=== PATIENT | male | born 1950 | race Caucasian/White ===

== ENCOUNTER 2016-06-06 16:17 | Emergency (ER) | payer SELFPAY ==
[2016-06-06 16:38] VITALS: BP 138/73
--- NOTE | 2016-06-06 16:55 | UC ---
Throat Pain/Nasal Sunday HPI - HPI Summary HPI Summary: compalint of nasal congestion and cough that started approx 9 days ago cough is non-productive sinus pressure in his forehead and face mild sore throat from secretions intermittent headaches thinks he might have had a fever several times denies shortness of breath and wheezing taking OTC medications with some relief - History of Current Complaint Chief Complaint: UCRespiratory Stated Complaint: COLD,COUGH,SORE THROAT Time Seen by Provider: 06/06/16 16:45 Hx Obtained From: Patient - Allergies/Home Medications Allergies/Adverse Reactions: Allergies Allergy/AdvReac Type Severity Reaction Status Date / Time No Known Allergies Allergy Verified 01/07/14 12:47 PMH/Surg Hx/FS Hx/Imm Hx Previously Healthy: Yes Endocrine History Of: Denies: Diabetes, Thyroid Disease Cardiovascular History Of: Denies: Cardiac Disorders, Hypertension Respiratory History Of: Denies: COPD, Asthma GI/ History Of: Denies: Ulcer - Surgical History Surgical History: None - Family History Known Family History: Negative: Cardiac Disease, Hypertension, Diabetes - Social History Occupation: Employed Full-time Lives: With Family Alcohol Use: Rare Substance Use Type: None Smoking Status (MU): Never Smoked Tobacco - Immunization History Most Recent Tetanus Shot: does not recall Review of Systems Constitutional: Fever, Fatigue Skin: Negative Eyes: Negative ENT: Sore Throat, Nasal Discharge Respiratory: Cough Cardiovascular: Negative Gastrointestinal: Negative Genitourinary: Negative Motor: Negative Neurovascular: Negative Musculoskeletal: Negative Neurological: Headache Psychological: Negative All Other Systems Reviewed And Are Negative: Yes Physical Exam Triage Information Reviewed: Yes Appearance: No Pain Distress, Well-Nourished Vital Signs: Initial Vital Signs Temp 97.9 F 06/06/16 16:33 Pulse 52 06/06/16 16:33 Resp 16 06/06/16 16:33 BP 138/73 06/06/16 16:33 Pulse Ox 99 06/06/16 16:33 Vital Signs Reviewed: Yes Eyes: Positive: Conjunctiva Clear ENT: Positive: Pharyngeal erythema, Nasal congestion, Nasal drainage, TMs normal , Other: - frontal and maxillary sinus tenderness Neck: Positive: No Lymphadenopathy Respiratory: Positive: Lungs clear, Normal breath sounds, No respiratory distress Cardiovascular: Positive: No Murmur, Pulses Normal, Bradycardia Abdomen Description: Positive: Nontender, Soft Bowel Sounds: Positive: Present Musculoskeletal Exam: Normal Neurological Exam: Normal Psychological Exam: Normal Skin Exam: Normal Throat Pain/Nasal Course/Dx - Differential Dx/Diagnosis Differential Diagnosis/HQI/PQRI: Sinusitis, URI Provider Diagnoses: sinusitis Discharge - Discharge Plan Condition: Stable Disposition: HOME Prescriptions: Amoxicillin/Clavulanate TAB* [Augmentin TAB 875*] 875 mg PO BID #20 tab Patient Education Materials: Sinusitis (ED) Referrals: Frank Borrego MD [Primary Care Provider] - Additional Instructions: SINUSITIS What is Sinusitis? Sinusitis is inflammation or infection of the lining of the sinuses behind the bones in your cheeks or forehead. Sinusitis may occur following a common cold, flu, or other infection; allergies; a tooth infection that spreads to the sinuses; swimming in contaminated water; pressure changes in airplanes at high altitudes; violent sneezing or nose blowing or smoking or breathing other peoples smoke. Symptoms Might Include: Nasal Congestion Sneezing Watery eyes, eye irritation, or eye itching Headaches Pressure in the cheeks Wheezing Trouble smelling Sore throat and coughing may occur Treatment Recommendations: Take medicines as prescribed until completely gone. Drink plenty of fluids. Use saline nose spray to thin the mucous and help the sinuses drain. Use a vaporizer or humidifier. Apply warm compresses to the face or forehead several times a day for 10 to 20 minutes. Call Your Doctor or Return Here IF: Your pain increases during treatment. You develop a high temperature. You develop unusual swelling around the eyes. You have difficulty with your vision. You develop a severe headache, earache, or toothache. You develop increased fever or fever that does not respond to medication such as Tylenol?. You have difficulty breathing or catching your breath. You begin to have any other new symptoms that worry you.
== END 2016-06-06 17:17 | disposition home or self-care (01) ==
LOC: UCEAST 16:17
DX: J32.9 Chronic sinusitis, unspecified (principal)
CPT/HCPCS: 99212; G0463

== ENCOUNTER 2016-06-29 15:34 | Emergency (ER) | payer BC, MEDICARE ==
[2016-06-29 16:03] VITALS: BP 137/72
== END 2016-06-29 16:51 | disposition left against medical advice (07) ==
LOC: UCEAST 15:34
DX: T14.8 Other injury of unspecified body region (principal); W57.XXXA Bitten or stung by nonvenomous insect and other nonvenomous arthropods, initial encounter; Y93.9 Activity, unspecified; Y92.9 Unspecified place or not applicable; Z53.21 Procedure and treatment not carried out due to patient leaving prior to being seen by health care provider

== ENCOUNTER 2016-06-30 07:31 | Emergency (ER) | payer BC, MEDICARE ==
[2016-06-30 07:39] VITALS: BP 129/63
[2016-06-30] MEDS ORDERED: Doxycycline (NF) 100 MG TAB PO ONE (08:52)
--- NOTE | 2016-06-30 09:02 | UC ---
Collins Garcia Billy, scribed for EdaDevon marshall MD on 06/30/16 at 0840 . General HPI - HPI Summary HPI Summary: In Room Note: Patient is a 65 year-old male coming to [facility] of revaluation of a potential tick bite and to have testing for Lyme disease. 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 There was no tick found attached to him at the time. Otherwise, he states that he feels well and has no other complaints. Note: Vital signs stable, BP 129/63, O2 sat on room air 97%, nonsmoker, no history of Lyme disease. Nurse's Note: pt wa bit by a tick on monday. pt was here yesterday and could not stay for blood draw. pt came back to have blood drawn for lyme. pt states he did not actually find the tick attatched to him, but has a bite kate. - History of Current Complaint Chief Complaint: UCGeneralIllness Stated Complaint: LYME TEST PLEASE Time Seen by Provider: 06/30/16 08:38 Hx Obtained From: Patient Onset/Duration: Gradual Onset, Lasting Days, Still Present Timing: Constant Onset Severity: Moderate Current Severity: Moderate Pain Intensity: 0 Character: RASH Aggravating: NONE Alleviating: NONE - Allergy/Home Medications Allergies/Adverse Reactions: Allergies Allergy/AdvReac Type Severity Reaction Status Date / Time No Known Allergies Allergy Verified 01/07/14 12:47 PMH/Surg Hx/FS Hx/Imm Hx Endocrine History Of: Denies: Diabetes, Thyroid Disease Cardiovascular History Of: Denies: Cardiac Disorders, Hypertension Respiratory History Of: Denies: COPD, Asthma GI/ History Of: Denies: Ulcer - Surgical History Surgical History: None - Family History Known Family History: Negative: Cardiac Disease, Hypertension, Diabetes - Social History Occupation: Employed Full-time - blacksmith Alcohol Use: Rare Substance Use Type: None Smoking Status (MU): Never Smoked Tobacco - Immunization History Most Recent Tetanus Shot: does not recall Review of Systems Constitutional: Negative Skin: Rash Eyes: Negative ENT: Negative Respiratory: Negative Cardiovascular: Negative Gastrointestinal: Negative Genitourinary: Negative Motor: Negative Neurovascular: Negative Musculoskeletal: Negative Neurological: Negative Psychological: Negative All Other Systems Reviewed And Are Negative: Yes Physical Exam Triage Information Reviewed: Yes Appearance: Well-Appearing, No Pain Distress, Well-Nourished Vital Signs: Initial Vital Signs Temp 97.2 F 06/30/16 07:34 Pulse 49 06/30/16 07:34 Resp 18 06/30/16 07:34 BP 129/63 06/30/16 07:34 Pulse Ox 97 06/30/16 07:34 Vital Signs Reviewed: Yes Eyes: Positive: Conjunctiva Clear ENT: Positive: Hearing grossly normal, Pharynx normal, TMs normal. Negative: Muffled/hoarse voice Neck: Positive: Supple, No Lymphadenopathy Respiratory: Positive: Chest non-tender, Lungs clear, Normal breath sounds, No respiratory distress Cardiovascular: Positive: RRR, No Murmur Abdomen Description: Positive: Nontender, No Organomegaly, Soft Bowel Sounds: Positive: Present Musculoskeletal: Positive: Strength Intact Neurological: Positive: Alert Psychological: Positive: Age Appropriate Behavior Skin Exam: Other - OVER THE LEFT BICEP MUSCLE THERE IS APPROXIMATELY A 4 INCH X 1 INCH ERYTHEMATOUS RASH. THE RASH ITHCES AND IS NOT A TARGET RASH TYPICAL OF ERYTHEMA MIGRANS. Course/Dx - Course Course Of Treatment: Patient is Urgent/Emergent. BP elevated due to current condition w/o HTN in PMH. This is a 65 year-old male coming to [facility] for evaluation of a potential tick bite with a rash on the left upper arm. I discussed with the patient that his rash could in fact be an allergic rash since no tick was found, or that it could be related to Lyme disease given his work environment. I will give him doxycycline here, draw blood, and he will return in 2-3 weeks for a recheck for Lyme. He will also keep an eye on this rash. - Differential Dx - Multi-Symptom Provider Diagnoses: RASH: UNCLEAR ETIOLOGY; ALLERGIC vs. Lyme rash. Course of evaluation and treatment discussed with patient. Discharge - Discharge Plan Condition: Stable Disposition: HOME Patient Education Materials: Lyme Disease (ED) Referrals: Erik Fang MD [Primary Care Provider] - Additional Instructions: Thank you for helping us improve patient care by filling out the [employer] Survey. WE DISCUSSED: Your rash could be an allergic reaction or evidence of a tick bite that might transmit Lyme disease. We have drawn your blood today to check for Lyme. You need to follow up with your doctor or here and be rechecked in 3 weeks. I have given you one dose of doxycycline here. If there is evidence of Lyme or if this rash looks like Lyme or you develop other symptoms, you will need further treatment. Call at any time for any questions or concerns. Consider seeing your doctor in a week if the rash is still present. The documentation as recorded by the Collins garcias Billy accurately reflects the service I personally performed and the decisions made by me, Devon Salazar MD.
== END 2016-06-30 09:06 | disposition home or self-care (01) ==
LOC: UCEAST 07:31
DX: R21 Rash and other nonspecific skin eruption (principal)
CPT/HCPCS: 86618; 99212; G0463